=== PATIENT | female | born 1985 | race African-American/Black ===

== ENCOUNTER 2018-09-07 19:05 | Emergency (ER) | payer BC ==
[~2018-09-07] VITALS: Ht 160 cm; Wt 78.0 kg
[2018-09-07 19:13] VITALS: BP 137/70
[2018-09-07] MEDS ORDERED: MOBIC15 MG PO (20:09)
--- NOTE | 2018-09-07 22:12 | EKG ---
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
== END 2018-09-07 20:10 | disposition home or self-care (01) ==
LOC: ER 19:05
DX: R07.89 Other chest pain (principal); M32.9 Systemic lupus erythematosus, unspecified; Z88.1 Allergy status to other antibiotic agents; Z88.8 Allergy status to other drugs, medicaments and biological substances; Z88.2 Allergy status to sulfonamides